=== PATIENT | female | born 1960 | race Caucasian/White ===

== ENCOUNTER → 2017-03-20 | Outpatient (CLI) | payer OTHER | LOC: HEART 5 03-03 08:00 | DX: I25.10 Atherosclerotic heart disease of native coronary artery without angina pectoris (principal); I20.9 Angina pectoris, unspecified; R94.39 Abnormal result of other cardiovascular function study | CPT/HCPCS: 78452; A9502; J2785 ==

== ENCOUNTER → 2021-04-12 | Outpatient (CLI) | payer OTHER ==
[~2021-04-12] MED LIST: ADMELOG100 UNIT/1 SQ; ASPIRIN EC81 MG PO; BASAGLAR K100 UNIT/1 SQ; ENOXAPARIN40 MG/0.4 SC; GABAPENTIN800 MG PO; IBUPROFEN800 MG PO; LISINOPRIL5 MG PO; LOPRESSOR 25 MG25 MG PO; LOVENOX SY40 MG/0.4 SQ; METOPROLOL PO; MONTELUKAST SOD10 MG PO; NORCO 10-325 T1 EACH PO; PANTOPRAZOLE SO40 MG PO; RANITIDINE HCL300 MG PO; VITAMIN C 500500 MG PO; VITAMIN D250000 UNIT PO
== END ==
LOC: KOH-I 09:43
DX: M79.672 Pain in left foot (principal); M79.671 Pain in right foot
CPT/HCPCS: 73630

== ENCOUNTER → 2021-08-09 | Outpatient (CLI) | payer OTHER | LOC: KOH-I 11:57 | DX: M79.671 Pain in right foot (principal); M19.071 Primary osteoarthritis, right ankle and foot; Z98.890 Other specified postprocedural states | CPT/HCPCS: 73630; 73650 ==